=== PATIENT | female | born 1980 | race African-American/Black ===

== ENCOUNTER 2016-09-08 14:04 | Emergency (ER) | payer SELFPAY ==
[~2016-09-08] VITALS: Ht 160 cm; Wt 57.2 kg
[2016-09-08 14:39] VITALS: BP 112/78
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
[2016-09-08] MEDS ORDERED: CYCL10TA2 PO (16:13)
[2016-09-08] MEDS ORDERED: NAPR500T3 PO (16:13)
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
== END 2016-09-08 16:22 | disposition home or self-care (01) ==
LOC: ER 14:04
DX: S16.1XXA Strain of muscle, fascia and tendon at neck level, initial encounter (principal); V49.49XA Driver injured in collision with other motor vehicles in traffic accident, initial encounter; Y93.89 Activity, other specified; Y99.8 Other external cause status; Y92.488 Other paved roadways as the place of occurrence of the external cause
CPT/HCPCS: 72125; 99284-25

== ENCOUNTER 2016-09-15 10:00 | Emergency (ER) | payer OTHER ==
[~2016-09-15] VITALS: Ht 160 cm; Wt 57.2 kg
[~2016-09-15 10:00] MED LIST: CYCL10TA2 PO; NAPR500T3 PO
[2016-09-15] MEDS ORDERED: ORPH100T PO (11:29)
[2016-09-15] MEDS ORDERED: PRED20TA PO (11:29)
[2016-09-15] MEDS ORDERED: HYDR-971 PO (11:29)
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
== END 2016-09-15 11:40 | disposition home or self-care (01) ==
LOC: ER 10:00
DX: M54.2 Cervicalgia (principal)
CPT/HCPCS: 99283

== ENCOUNTER 2016-12-15 18:07 | Emergency (ER) | payer SELFPAY ==
[~2016-12-15] VITALS: Ht 157.5 cm; Wt 55.3 kg
[~2016-12-15 18:07] MED LIST changes: +HYDR-971 PO; +ORPH100T PO; +PRED20TA PO
[2016-12-15 18:12] VITALS: BP 125/72
--- NOTE | 2016-12-15 19:20 | PHYS DOC ---
Past Medical History Past Medical History: No Pertinent History Past Surgical History: No Surgical History Additional Information: SMOKES LESS THAN 0.25 PPD Alcohol Use: Occasionally Drug Use: None Adult General Chief Complaint Chief Complaint: ANXIETY/PANIC ATTACK HPI HPI Patient is a 36 year old female who presents with anxiety. She states she was at work earlier today & briefly saw white spots in her left eye. She states her vision was otherwise normal, not blurred. This made her feel panicked. She believes her heart was racing & she felt a sense of dread. She states eye symptoms have completely resolved. Now she does not feel anxious at all. She states she has a history of panic attacks. Denies chest pain, shortness of breath, headache, vomiting, extremity numbness/weakness. She has a remote history of left eye surgery for cataracts. Review of Systems Review of Systems Constitutional: Denies fever or chills Eyes: Reports white spots in vision. HENT: Denies nasal congestion or sore throat Respiratory: Denies cough or shortness of breath Cardiovascular: Denies chest pain GI: Denies abdominal pain, nausea, vomiting Musculoskeletal: Denies back pain or joint pain Integument: Denies rash Neurologic: Denies headache, focal weakness or sensory changes Allergies Allergies Allergies Coded Allergies Type Severity Reaction Last Updated Verified No Known Drug Allergies 09/08/16 No Physical Exam Physical Exam Constitutional: Well developed, well nourished, no acute distress, non-toxic appearance. HENT: Normocephalic, atraumatic, bilateral external ears normal, oropharynx moist, nose normal. Eyes: PERRLA, EOMI, no papilledema, conjunctiva normal, no discharge. Cardiovascular: RRR, no murmurs, no edema. Lungs & Thorax: LCTAB, no wheezing, no respiratory distress. Abdomen: soft, nontender, nondistended. Skin: Warm, dry, no erythema, no rash. Back: No tenderness. Extremities: No tenderness, no edema. Neurologic: Alert and oriented X 3, CN2-12 grossly intact, no focal deficits noted. Psychologic: Affect normal, judgement normal, mood normal. Current Patient Data Vital Signs Vital Signs Date Time Temp Pulse Resp B/P (MAP) Pulse Ox O2 Delivery O2 Flow Rate FiO2 12/15/16 18:12 97.8 97 16 125/72 (89) 100 Room Air 97.8 EKG EKG [] Radiology/Procedures Radiology/Procedures [] Course & Med Decision Making Course & Med Decision Making Pertinent Labs and Imaging studies reviewed. (See chart for details) Patient presents after transient & now completely resolved vision symptoms & anxiety. She has no complaints at time of exam. Normal vitals, normal neuro & bedside eye exam. Visual acuities documented by RN. Recommend follow up with ophthalmology for dilated eye exam, referred to Dr. Manjarrez. Also recommend establish care with primary care physician for management of panic/anxiety. Follow up with Dr. Lei. Come back for loss of vision, focal neuro deficit, chest pain/palpitations, any otherwise worsening condition. Discharged home in stable condition. [] Dragon Disclaimer Dragon Disclaimer This electronic medical record was generated, in whole or in part, using a voice recognition dictation system. Departure Departure Impression: Primary Impression: Anxiety Disposition: 01 HOME, SELF-CARE Condition: STABLE Referrals: NO PCP (PCP) KRISTY LEI MD, GURINDER MD Patient Instructions: Anxiety and Panic Attacks, [id number], Eye - Floaters Additional Instructions: You were seen in the emergency department today. Your exam was normal. Please follow-up with Dr. Manjarrez, the eye doctor, for vision problems. Please make an appointment with Dr. Lei in the primary care clinic to discuss management of panic attacks and anxiety. IVÁN MODI MD Dec 15, 2016 19:20
--- NOTE | 2016-12-16 08:02 | EKG ---
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
== END 2016-12-15 19:45 | disposition home or self-care (01) ==
LOC: ER 18:07
DX: F41.9 Anxiety disorder, unspecified (principal)
CPT/HCPCS: 93005; 99284-25